=== PATIENT | female | born 1955 | race Caucasian/White ===

== ENCOUNTER 2025-01-13 09:00 | Outpatient (RCR) | payer MEDICARE, SELFPAY | END 2025-05-13 23:59 | disposition home or self-care (01) | PROVIDERS: PCP Student in an Organized Health Care Education/Training Program; Visit Provider Student in an Organized Health Care Education/Training Program | DX: M16.12 Unilateral primary osteoarthritis, left hip (principal); Z96.642 Presence of left artificial hip joint; Z51.89 Encounter for other specified aftercare | CPT/HCPCS: 97110; 97161; 97535 ==

== ENCOUNTER 2025-01-19 06:08 | Day surgery (SDC) | payer MEDICARE, SELFPAY ==
[2025-01-19] VITALS (65 sets, daily range): BP systolic 74–123; BP diastolic 53–79; PULSE 76–107; RESP 12–20; TEMP 36.1–37.5; O2SAT 93–99; BMI 19.9
[2025-01-19] MEDS: LACTATED RINGERS 1000 ML 1,000 ML 100 ML IV ×2 (06:25→15:03)
[2025-01-19] MEDS: SODIUM CHLORIDE 0.9 % (FLUSH) 10 ML SYRINGE IVF ×2 (06:40→14:30)
--- NOTE | 2025-01-19 07:13 | SUR.PREOP ---
TIME?OUT:?0714 PT/RN/MDA?VERIFICATION?OF?SURGICAL?SITE,?PROCEDURE,?AND?CONSENT OBTAINED?PRIOR?TO?INVASIVE?PROCEDURE.
[2025-01-19] MEDS: MIDAZOLAM HCL 1 MG/ML inj IVP (07:20)
[2025-01-19] MEDS: fentaNYL 100 MCG/2 ML inj IVP (07:20)
--- NOTE | 2025-01-19 07:20 | W.PM.H&PU ---
History & Physical Update History & Physical Update H&P Reviewed and patient assessed: No changes noted
--- NOTE | 2025-01-19 07:30 | CRLHL7_ITS ---
For Patients: As a result of the Cures Act, medical imaging exams and procedure reports are released immediately into your electronic medical record. You may view this report before your referring provider. If you have questions, please contact your health care provider. Indication: Hip replacement surgery Technique: AP hip fluoroscopic image. Fluoroscopy time 48.6 seconds. Findings/Impression: Hardware from a left total hip arthroplasty is in satisfactory position. Dictated by Dayorn Saeed MD @ 01/19/2025 9:52:01 AM (Electronically Signed)
[2025-01-19] MEDS: CEFAZOLIN 2 GM in 0.9 % SODIUM CHLORIDE Mini-bag 100 ML IVPB (07:45)
[2025-01-19] MEDS: TRANEXAMIC ACID 100 MG/ML INJ 1000 MG IV (07:52)
--- NOTE | 2025-01-19 09:27 | P.ORPRC_ITS ---
Procedure Note Date of procedure: 01/19/25 Procedure: PREOPERATIVE DIAGNOSIS: 1. Left hip osteoarthritis, severe, primary POSTOPERATIVE DIAGNOSIS: 1. Left hip osteoarthritis, severe, primary PROCEDURE: 1. Left total hip arthroplasty-anterior approach 2. 05871 - intraoperative fluoroscopy up to 1 hour. SURGEON: Nash Mccarty MD. DOUGH BRAKE MACHINE OPERATOR: Deshaun Gaines PA-C; SASHA Durham - Of note, a skilled orthotics assistant was critical for this case to aid in patient positioning, tissue retraction, limb manipulation/positioning, dislocation/relocation, patient safety, and closure. ANESTHESIA: Spinal anesthetic EBL: 800ml IMPLANTS: DePuy J&J uncemented total hip [place] cup size 50, single cancellous acetabular screw, hole eliminator, +4 neutral liner Actis stem, standard offset, size 7 +9 mm ceramic 32mm head. COMPLICATIONS: None evident INDICATIONS: The patient is a pleasant 69-year-old female who has experienced severe left hip pain and difficulty bearing weight. Workup included x-rays which revealed severe osteoarthrosis in the hip. Given the deformity, the dysfunction, and the pain, as well as the failure of nonoperative management, recommendation was made for surgery. FINDINGS: Full-thickness chondral loss diffusely throughout the femoral head and acetabulum. Flattening to the femoral head. Osteophytes around the perimeter the femoral head/neck junction and perimeter of the acetabulum. Moderate effusion upon entering the joint. DESCRIPTION OF PROCEDURE: Following a thorough discussion of risks, benefits, and alternatives consent was obtained and the left hip was marked. The patient was brought to the operating room and placed supine on the operating table. Induction of anesthesia was undertaken. 1 g IV Ancef and 1 g tranexamic acid was administered within 1 hr of incision preoperatively. Proper time-out was performed identifying proper patient, site, procedure. The operative extremity was prepped and draped in the appropriate sterile fashion using ChloraPrep after the patient was positioned on the [place] table with head in neutral alignment and all bony prominences well padded. C-arm fluoroscopic imaging was utilized to confirm proper pelvis rotation and position, and to get true AP films of both the contralateral left, and the affected left hip. This is for comparison. A longitudinal incision was made starting approximately 1 cm distal to the ASIS, and 3-4 cm lateral. The incision was extended distally aiming toward the lateral border the patella. Sharp incision through skin and bovie cautery through the subcutaneous tissue allowed identification of the TFL fascia. This was sharply divided, and the fascia bluntly released from the muscle fibers as we dissected medial. Upon coming to the medial border, we were able to retract the TFL laterally, and penetrated the deeper fascia and identify the crossing circumflex vessels. These were ligated/cauterized. The rectus was elevated from the capsule, and retractors placed laterally and medially along the femoral neck to help with visualization of the capsule. We then performed an inverted T capsulotomy. The capsule was tagged for later repair. Retractors were placed inside the capsule. The femoral neck was visuali zed after releasing medially down to the lesser trochanter, along the saddle laterally, and up onto the acetabulum. The femoral neck cut was made in line with our preoperative templating. The head was removed in a single piece, and sized. We turned our attention to acetabular preparation. Initially, the labrum was resected from around the perimeter, the pulvinar was excised, allowing us to visualize the false wall. We started the reaming with a 43 mm reamer. This was medialized down to the true wall. We then enlarged our reamers sequentially up to one size less than the selected cup size. We trialed at the same size and found it to have an excellent fit. The selected cup was then opened, inserted, and impacted in line with the goal of 40-45? of abduction, and 20-25? of anteversion. This was confirmed on C-arm fluoroscopic imaging to be in the appropriate/goal position. Once the cup was placed we placed a hole eliminator and a liner consistent with preop planning. Attention was turned to the femoral preparation. The limb was extended, externally rotated, and adducted. The posteromedial capsule was released, as retractors were placed allowing excellent access to the proximal femur. Initially a box lining machine operator was followed by canal finder followed by various broaches. We broached sequentially up to size noted above, found it to have excellent rotational control, and trialing various heads and necks, revealed that appropriate neck offset, and the above noted head size provided the greatest stability, and denominational of length, and offset. C-arm fluoroscopic imaging confirmed position of the stem, as well as leg lengths, which were compared with the pre procedure all fluoroscopic images. Trial implants were removed, the real femoral stem inserted, as was the ceramic head. After reducing, the leg was placed through range of motion and stability was confirmed anterior, posterior, and lateral. A 3 min Betadine soak was then performed, and thorough irrigation with normal saline followed. Closure of the capsule was performed with #1 PDS. Bleeding was confirmed to be controlled at this stage, and the TFL fascia was closed with #0 strata fix. Subcutaneous, and subcuticular closure was performed with 2-0 Vicryl and 4-0 Monocryl, respectively. Dressings were applied, and the patient was awoken from anesthesia and transferred the PACU in stable condition. A skilled orthotics assistant was critical for this case to aid in patient positioning, tissue retraction, proximal femur exposure, limb manipulation/positioning, dislocation/relocation, patient safety, and closure. PLAN: 1. Weight bear as tolerated operative extremity. 2. 23 hr perioperative antibiotics. 3. Ice. 4. PT/OT consults for ambulation assistance/mobility education. 5. Social work consult for discharge planning. 6. DVT prophylaxis with at SCDs and Xarelto x5 days followed by aspirin for a total of 1 month..
--- NOTE | 2025-01-19 10:07 | CRLHL7_ITS ---
For Patients: As a result of the Cures Act, medical imaging exams and procedure reports are released immediately into your electronic medical record. You may view this report before your referring provider. If you have questions, please contact your health care provider. Indication: POST OP LEFT RONALD Technique: AP hip centered pelvis and lateral view left hip Findings/Impression: Hardware from a left total hip arthroplasty is in satisfactory position. Bone alignment is normal. No sign of acute fracture. Postop changes are within normal limits. Dictated by Dayron Saeed MD @ 01/19/2025 10:52:24 AM (Electronically Signed)
--- NOTE | 2025-01-19 10:16 | P.NB_ITS ---
Nerve Block Nerve Block Time Seen by Provider: 07:15 Date Seen: 01/19/25 Type of block requested by surgeon for post-operative analgesia: CHAZ/LFCN Side: left Time out performed: Yes Verification of patient name: Yes Verification of date of : Yes Site marking: site marked Name of person performing procedure: Devon Continuous monitoring Was continuous monitoring of O2 sat, B/P, phototypesetting equipment monitor, recorded every 15 minutes?: Yes Procedure Checklist: sterile prep, needles and gloves Ultrasound guided. Images saved: Yes Medications given in 5ml increments after negative aspiration: Ropivicaine %: 0.5 mL: 20 Needle gauge: 20 Precedex (mcg): 25 Patient tolerated procedure well: Yes Additional comments: Needle noted below psoas tendon needle noted adjacent to LFCN Block Charges Block Charge (with Pro Fee): Other Periph Nerve Block Use of Ultrasound Machine for Block: Yes- US Guidance/pain block
--- NOTE | 2025-01-19 10:17 | P.ANES_ITS ---
Anesthesia Charges Start Date/Time Anesthesia Start Date: 01/19/25 Anesthesia Start Time: 07:28 Stop Date/Time Anesthesia Stop Date: 01/19/25 Anesthesia Stop Time: 10:15 Coding CPT Codes CPT Codes: ANESTH HIP ARTHROPLASTY - 66827 ([id number]) P1 - NORMAL HEALTHY PATIENT, QK - SOCIAL MEDIA JOB TITLES 2-4 CNCRNT ANECarlos A PROC, QX - SUCKER MACHINE OPERATOR SVGraham W/ MED DIRECTION
--- NOTE | 2025-01-19 10:17 | W.ANESCHARGE ---
Anesthesia Charges Start Date/Time Anesthesia Start Date: 01/19/25 Anesthesia Start Time: 07:28 Stop Date/Time Anesthesia Stop Date: 01/19/25 Anesthesia Stop Time: 10:15 Coding CPT Codes CPT Codes: ANESTH HIP ARTHROPLASTY - 79181 ([id number]) P1 - NORMAL HEALTHY PATIENT, QK - MANAGER HEART FAILURE 2-4 CNCRNT ANECarlos A PROC, QX - ENTRY LEVEL MANAGEMENT SVGraham W/ MED DIRECTION
[2025-01-19 10:26] LABS: Hemoglobin* 10.5 gm/dL (12.0-16.0)
[2025-01-19] MEDS: PHENYLEPHRINE 100 MCG/ML SYRINGE IVP ×4 (10:31→11:37)
--- NOTE | 2025-01-19 10:32 | P.ANES_ITS ---
Anesthesia Charges Start Date/Time Anesthesia Start Date: 01/19/25 Anesthesia Start Time: 07:28 Stop Date/Time Anesthesia Stop Date: 01/19/25 Anesthesia Stop Time: 10:15 Coding CPT Codes CPT Codes: ANESTH HIP ARTHROPLASTY - 73377 ([id number]) P1 - NORMAL HEALTHY PATIENT, QK - DERRICK MAN 2-4 CNCRNT ANECarlos A PROC, QX - MEDICAL RECORD LIBRARIAN SVGraham W/ MED DIRECTION
--- NOTE | 2025-01-19 10:32 | W.ANESCHARGE ---
Anesthesia Charges Start Date/Time Anesthesia Start Date: 01/19/25 Anesthesia Start Time: 07:28 Stop Date/Time Anesthesia Stop Date: 01/19/25 Anesthesia Stop Time: 10:15 Coding CPT Codes CPT Codes: ANESTH HIP ARTHROPLASTY - 04203 ([id number]) P1 - NORMAL HEALTHY PATIENT, QK - MANAGEMENT RECRUITER 2-4 CNCRNT ANECarlos A PROC, QX - CERTIFIED MEDICAL CODING SPECIALIST SVGraham W/ MED DIRECTION
[2025-01-19] MEDS: ePHEDrine sulfate 5 MG/ML inj IVP ×2 (10:54→11:10)
[2025-01-19] MEDS: ALBUMIN HUMAN 5% IV (11:17)
[2025-01-19] MEDS: LACTATED RINGERS 1000 ML 1,000 ML 200 ML IV (12:29)
[2025-01-19] MEDS: OXYCODONE 5 MG TABLET PO ×4 (14:21→22:24)
--- NOTE | 2025-01-19 15:11 | SUR.PHASEII ---
1400: Patient up to bathroom at 1400 with 3 feet ambulation with walker then to wheel chair, patient voided. Patient up in chair after voiding. Pain rated a 6 on pain scale. Patient given pain med and apple sauce. Tolerating coffee and water. 1430: Patient transferred to wheel chair with 2 nurse standby assist. Patient became lightheaded, near syncope episode but still remained conscious. Deshaun SEGURA in room to help transfer patient back to cart. Transfer orders placed by Deshanu for patient to recover in [facility]. Order from anesthesia given to place 18 gauge IV.
--- NOTE | 2025-01-19 16:03 | SUR.PHASEII ---
Patient transfered to [facility] at 1440.
--- NOTE | 2025-01-19 16:08 | P.IMCN_ITS ---
Date of Consult Patient: Rebeca Patient Consult date: 01/19/25 Requesting Physician: Orthopedics Primary Care Provider: Griselda Trejo MD Consult Narrative Narrative: Lydia Leon is a 69 year old female with no major medical issues underwent an elective LTHA today by Dr. Mccarty for severe osteoarthritis. I am told her EBL was 800-1000cc. Preop Hgb on 01/13/25 was 14.4 and is 10.5 post op this morning. She is not on any blood thinners, but had been on celecoxib for pain in her hip. She had some weakness and dizziness with standing in the PACU, but that resolved, and she does not feel those symptoms now while lying in bed. She endorses nausea, which is not unusual for her. She has a long standing issue of throwing up pills 2 hours after taking them. She has not had an EGD or other evaluation of this symptoms. I encouraged her to talk with her PCP about that issue. Review of Systems Status of ROS: Reports: 10 or more systems reviewed and unremarkable except as noted in History and below PFSH [facility] Medical History Lower back injury ?S39.92XA - Unspecified injury of lower back, initial encounter (ICD-10) Cough ?R05.9 - Cough, unspecified (ICD-10) Depression ?F32.A - Depression, unspecified (ICD-10) Left hip pain ?M25.552 - Pain in left hip (ICD-10) Skin tag ?L91.8 - Other hypertrophic disorders of the skin (ICD-10) Surgical History (Updated 01/19/25 @ 16:34 by Alaina García MD) History of total left hip replacement (01/19/25) ?Z96.642 - Presence of left artificial hip joint (ICD-10) H/O wisdom tooth extraction ?K08.409 - Partial loss of teeth, unspecified cause, unspecified class (ICD- 10) H/O hemorrhoidectomy ?Z98.890 - Other specified postprocedural states (ICD-10) History of breast augmentation ?Z98.82 - Breast implant status (ICD-10) Family History Mother Breast cancer Social History Narrative: life partner-Catracho Retired from [employer] Denies tob, EtOH, recreational drug use Smoking Status: Never smoker Do you use any of these nicotine containing products: None Second hand tobacco smoke exposure: No How often do you have a drink containing alcohol: never AUDIT-C Alcohol total score: 0 Non-prescribed substance use: denies use Caffeine: Yes Are you using contraception or practicing any form of control: No Meds Home Medications and Allergies Home Medications ?Medication ?Instructions ?Recorded ?Confirmed ?Type celecoxib 100 mg capsule 100 mg PO BID 01/03/25 01/19/25 History clobetasol 0.05 % topical cream 1 applic topical BID 01/19/25 01/19/25 History triamcinolone acetonide 0.1 % 1 applic topical BID 01/19/25 01/19/25 History topical cream Allergies Allergy/AdvReac Type Severity Reaction Status Date / Time monosodium glutamate Allergy Mild Headache Verified 01/18/25 07:00 sorbitol Allergy Mild Headache Verified 01/18/25 07:00 Exam Narrative: Exam Narrative: General: No acute distress. Awake alert oriented x3. HEENT: Normocephalic atraumatic, pupils equally round and reactive to light and accommodation. Oropharynx clear. Mucous membranes are moist. No cervical lymphadenopathy, thyromegaly or carotid bruits. No JVD. Cardiovascular: Regular rate and rhythm. No murmurs, gallops, or rubs. Chest: No increased work of breathing. Clear to auscultation bilaterally. No crackles or wheezes. Abdomen: Bowel sounds present. Soft, nondistended, nontender. No hepatosplenomegaly or masses. Extremities: Left hip bandage is clean, dry, and intact. There is no edema, fluctuance, hematoma, or bruising noted in the left hip. No edema, no cyanosis or clubbing. Skin: No jaundice, pallor noted, no rashes on visible skin. Const: Vital Signs, click to edit/add: Vital Signs - 24 hr 01/19/25 06:48 01/19/25 07:12 01/19/25 07:15 Temperature 98.1 F Pulse Rate 92 93 86 Respiratory Rate 16 16 16 Blood Pressure 100/69 116/79 113/78 Pulse Oximetry 94 93 99 Oxygen Delivery Me thod Room Air Nasal Cannula Nasal Cannula Oxygen Flow Rate 3 3 01/19/25 07:20 01/19/25 10:10 01/19/25 10:15 Temperature 97.3 F L Pulse Rate 83 106 H 107 H Respiratory Rate 16 18 16 Blood Pressure 103/73 89/63 L 88/58 L Pulse Oximetry 99 95 96 Oxygen Delivery Me thod Nasal Cannula Room Air Room Air Oxygen Flow Rate 3 01/19/25 10:20 01/19/25 10:25 01/19/25 10:30 Temperature 97.3 F L Pulse Rate 90 82 94 Respiratory Rate 14 14 18 Blood Pressure 91/63 99/64 74/58 L Pulse Oximetry 95 94 96 Oxygen Delivery Me thod Room Air Room Air Room Air Oxygen Flow Rate 01/19/25 10:35 01/19/25 10:40 01/19/25 10:45 Temperature 97.5 F L Pulse Rate 86 90 90 Respiratory Rate 14 14 14 Blood Pressure 88/64 L 94/53 L 81/56 L Pulse Oximetry 97 96 96 Oxygen Delivery Me thod Room Air Room Air Room Air Oxygen Flow Rate 01/19/25 10:50 01/19/25 10:55 01/19/25 11:00 Temperature 97.5 F L Pulse Rate 92 93 89 Respiratory Rate 12 14 12 Blood Pressure 79/53 L 74/57 L 97/65 Pulse Oximetry 94 95 95 Oxygen Delivery Me thod Room Air Room Air Room Air Oxygen Flow Rate 01/19/25 11:05 01/19/25 11:10 01/19/25 11:15 Temperature 97.5 F L Pulse Rate 95 95 92 Respiratory Rate 14 14 14 Blood Pressure 123/61 78/58 L 98/60 Pulse Oximetry 96 95 96 Oxygen Delivery Me thod Room Air Room Air Room Air Oxygen Flow Rate 01/19/25 11:20 01/19/25 11:25 01/19/25 11:30 Temperature 97.3 F L Pulse Rate 91 84 81 Respiratory Rate 16 16 16 Blood Pressure 90/56 L 92/62 90/72 Pulse Oximetry 95 95 97 Oxygen Delivery Me thod Room Air Room Air Room Air Oxygen Flow Rate 01/19/25 11:35 01/19/25 11:40 01/19/25 11:45 Temperature 97.2 F L Pulse Rate 87 80 81 Respiratory Rate 16 14 18 Blood Pressure 83/63 L 96/62 106/64 Pulse Oximetry 97 96 96 Oxygen Delivery Me thod Room Air Room Air Room Air Oxygen Flow Rate 01/19/25 11:50 01/19/25 11:55 01/19/25 12:00 Temperature 97.1 F L Pulse Rate 81 80 77 Respiratory Rate 12 16 18 Blood Pressure 90/61 91/61 90/59 L Pulse Oximetry 96 95 Oxygen Delivery Me thod Room Air Room Air Room Air Oxygen Flow Rate 01/19/25 12:05 01/19/25 12:10 01/19/25 12:15 Temperature 97.1 F L Pulse Rate 79 78 76 Respiratory Rate 14 14 14 Blood Pressure 97/64 92/62 101/53 L Pulse Oximetry 95 96 94 Oxygen Delivery Me thod Room Air Room Air Room Air Oxygen Flow Rate 01/19/25 12:20 01/19/25 12:30 01/19/25 12:35 Temperature 97.0 F L 97.1 F L Pulse Rate 85 82 91 Respiratory Rate 18 18 16 Blood Pressure 89/65 L 88/59 L 96/65 Pulse Oximetry 97 96 95 Oxygen Delivery Me thod Room Air Room Air Room Air Oxygen Flow Rate 01/19/25 12:45 01/19/25 12:50 01/19/25 12:52 Temperature Pulse Rate 87 81 87 Respiratory Rate 16 16 16 Blood Pressure 94/66 82/56 L 99/76 Pulse Oximetry 96 96 96 Oxygen Delivery Me od Room Air Room Air Oxygen Flow Rate 01/19/25 13:00 01/19/25 13:10 01/19/25 13:20 Temperature 97.6 F Pulse Rate 85 91 91 Respiratory Rate 16 16 16 Blood Pressure 90/62 98/58 L 96/62 Pulse Oximetry 95 97 98 Oxygen Delivery Me thod Room Air Room Air Room Air Oxygen Flow Rate 01/19/25 13:30 01/19/25 13:51 01/19/25 14:00 Temperature Pulse Rate 85 96 90 Respiratory Rate 16 16 16 Blood Pressure 96/59 L 104/63 96/54 L Pulse Oximetry 97 98 98 Oxygen Delivery Me thod Room Air Room Air Room Air Oxygen Flow Rate 01/19/25 14:10 01/19/25 14:20 01/19/25 14:30 Temperature Pulse Rate 92 90 91 Respiratory Rate 16 16 16 Blood Pressure 87/58 L 98/73 80/58 L Pulse Oximetry 98 97 98 Oxygen Delivery Me thod Room Air Room Air Room Air Oxygen Flow Rate 01/19/25 14:40 01/19/25 14:45 01/19/25 14:50 Temperature 97.3 F L Pulse Rate 85 85 80 Respiratory Rate 16 16 16 Blood Pressure 87/53 L 96/68 109/72 Pulse Oximetry 98 98 95 Oxygen Delivery Me thod Room Air Room Air Room Air Oxygen Flow Rate 01/19/25 15:00 Temperature Pulse Rate Respiratory Rate 16 Blood Pressure Pulse Oximetry 96 Oxygen Delivery Me thod Room Air Oxygen Flow Rate Labs Labs: Short CBC 01/19/25 Range/Units 10:21 Hgb 10.5 L (12.0-16.0) gm/dL Assessment and Plan Assessment and plan (1) History of total left hip replacement: Problem comment: Left total hip arthroplasty-anterior approach. Dr. Mccarty, 01/19/25 - routine postop cares - VTE prophylaxis with low-dose daily rivaroxaban, may need to consider postponing this if hemoglobin continues to drop, see below - PT and OT assessments Status: Acute (2) Osteoarthritis of left hip: Problem comment: Severe Status: Chronic (3) Acute blood loss as cause of postoperative anemia: Problem comment: - I am told her EBL was 800-1000cc. Preop Hgb on 01/13/25 was 14.4 and is 10.5 post op this morning. She is not on any blood thinners, but had been on celecoxib for pain in her hip. - currently asymptomatic, but was symptomatic in the PACU with standing. - obtain orthostatic blood pressures - obtain repeat hemoglobin this afternoon, notably she had 3 L IV fluid perioperatively - I discussed the risks and benefits of blood products with the patient and her significant other. The risks include transmission of blood borne illnesses including HIV and hepatitis. Additionally the risks include blood reaction or allergic reaction. She was agreeable to getting blood if it is recommended. - type and cross, will consider giving blood if patient is orthostatic, hemoglobin is less than 8, hemoglobin continues to drop by tomorrow morning, or patient is symptomatic or if there is evidence of ongoing bleeding Status: Acute
[2025-01-19] MEDS: CEFAZOLIN 1 GM in 0.9 % SODIUM CHLORIDE Mini-bag 100 ML IVPB ×2 (16:35→23:54)
[2025-01-19 16:47] LABS: Hemoglobin* 7.9 gm/dL (12.0-16.0)
--- NOTE | 2025-01-19 16:48 | REH.OT ---
OT: Order received and initially attempted to see patient in same day surgery, however nursing reports patient hypotensive, not tolerating activity and planning to transfer to med surg floor. Recheck status later and patient transferring to med surg and undergoing assessment with RN, then MD. Will reschedule OT for am due to patient status.
--- NOTE | 2025-01-19 21:51 | PC.NURSE ---
End of blood transfusion temp charted at 99.8 in error. Temperature was 99.5. Unable to edit documentation to fix error. Dr. García aware of temperature increase of 1.7 degrees above starting temperature. No new orders. Will recheck vitals at 2230 per protocol.
[2025-01-19] MEDS: SENNOSIDES 1 TAB TABLET 2 TAB PO (22:23)
--- NOTE | 2025-01-19 22:42 | PC.NURSE ---
Patient arrived to the floor after hip surgery. Hypotensive, dizzy and unable to sit up. Fluids running. Patient reporting pain in hip- alleviated some with PRN pain medications. Blood pressures remained low (90's/50's), and patient hemoglobin recheck low as well. Patient needing 1 unit of blood. At the end of the transfusion, patient had an increase in temperature. At the 1 hour post transfusion check- temperature was 99.0. Still elevated, but not 2 degress from starting transfusion. All other vitals remained stable and patient denied other symptoms. Patient voiding on the bedpan and taking medications crushed in applesauce. Nursing to continue to monitor.
[2025-01-20] MEDS: LACTATED RINGERS 1000 ML 1,000 ML 100 ML IV (01:26)
[2025-01-20] MEDS: OXYCODONE 5 MG TABLET PO ×4 (02:23→12:07)
[2025-01-20 02:40] LABS: Basophils Absolute Auto 0.01 K/uL (0.00-0.30); Basophils Percent Auto 0.2 % (0.0-3.0); Eosinophils Absolute Auto 0.01 K/uL (0.00-0.50); Eosinophils Percent Auto 0.2 % (0.0-7.0); Hematocrit 25.8 % (33.0-51.0); Hemoglobin* 8.8 gm/dL (12.0-16.0); Immature Granulocytes Abs Auto 0.01 K/uL (0.00-0.30); Immature Granulocytes Pct Auto 0.2 %; Mean Corpuscular HGB Conc 34 gm/dL (32-36); Mean Corpuscular Hemoglobin 32 pg (26-34); Mean Corpuscular Volume 93 fL (80-100); Monocytes Percent Auto 15.7 % (0.0-11.0); Neutrophils Percent Auto 73.7 % (42.0-72.0); Platelet Count* 118 K/uL (140-440); RDW Coefficient of Variation % 15.8 % (11.5-15.5); Red Blood Count 2.79 m/uL (4.00-5.20); White Blood Count* 6.07 K/uL (4.50-11.00)
[2025-01-20 02:45] LABS: Slide Review Reflex No
[2025-01-20 02:53] LABS: Chloride* 96 mmol/L (96-114); Sodium* 129 mmol/L (135-149)
[2025-01-20 02:54] LABS: Potassium* 3.5 mmol/L (3.6-5.1)
[2025-01-20 02:56] LABS: Blood Urea Nitrogen* 12 mg/dL (7-30); Creatinine* 0.4 mg/dL (0.5-1.5); Est. Creatinine Clearance* 46.24; Estimated Glomerular Filt Rate 108 ml/min
[2025-01-20 02:57] LABS: Anion Gap 7 mEq/L (7-15); Calcium* 7.8 mg/dL (8.4-10.6); Carbon Dioxide* 26 mmol/L (20-32); Glucose* 146 mg/dL (60-115)
[2025-01-20 03:00] VITALS: BP 129/73; PULSE 96; RESP 20; TEMP 36.6; O2SAT 93
--- NOTE | 2025-01-20 06:54 | PC.NURSE ---
End of shift summary: Pt has been A&O, afebrile and VSS overnight. She has improved to Ax1 with 2ww ambulating to the BR. Pt denies having any dizziness or nausea with ambulation. She continuously rates her pain at 7/10 before or after pain meds or activity. Ice on/off throughout the night. Left anterior hip dressing is C/D/I with no redness or swelling. CMS intact. PIV in left FA infusing LR @ 100 mL/hr d/t pt having a couple unmeasured voids. Bed alarm is in place d/t pt self transferring overnight while ripping out her IV and not using her walker. After RN re-educated her transportation department supervisor light use, fall risk and surgery precautions; pt verbalized understanding and was call light appropriate. She takes her meds with applesauce d/t reporting difficulty swallowing pills and will ?vomit them up in a couple hours?. Hgb recheck after transfusion of 1 unit RBC?s was 8.8. Pt remains pale in color.?
[2025-01-20 07:15] VITALS: BP 99/59; PULSE 106; RESP 20; TEMP 36.2; O2SAT 93; O2SAT 97
[2025-01-20 08:20] LABS: Hematocrit 26.7 % (33.0-51.0); Hemoglobin* 9.1 gm/dL (12.0-16.0); Mean Corpuscular HGB Conc 34 gm/dL (32-36); Mean Corpuscular Hemoglobin 32 pg (26-34); Mean Corpuscular Volume 93 fL (80-100); Platelet Count* 114 K/uL (140-440); Red Blood Count 2.88 m/uL (4.00-5.20); White Blood Count* 6.75 K/uL (4.50-11.00)
[2025-01-20 08:27] LABS: Slide Review Reflex No
[2025-01-20 08:33] LABS: Chloride* 96 mmol/L (96-114); Potassium* 3.7 mmol/L (3.6-5.1); Sodium* 131 mmol/L (135-149)
[2025-01-20 08:36] LABS: Anion Gap 4 mEq/L (7-15); Blood Urea Nitrogen* 8 mg/dL (7-30); Calcium* 8.2 mg/dL (8.4-10.6); Carbon Dioxide* 31 mmol/L (20-32); Creatinine* 0.4 mg/dL (0.5-1.5); Est. Creatinine Clearance* 46.24; Estimated Glomerular Filt Rate 108 ml/min; Glucose* 135 mg/dL (60-115)
[2025-01-20] MEDS: SENNOSIDES 1 TAB TABLET 2 TAB PO (08:55)
[2025-01-20] MEDS: RIVAROXABAN 10 MG TABLET PO (08:55)
--- NOTE | 2025-01-20 09:31 | PM.ORPN ---
Subjective Subjective Date Seen: 01/20/25 Principal diagnosis: Status postop day 1, left total hip arthroplasty - anterior approach Interval history: Patient reports doing better this morning. Still having pain, 05/12 consistently, feeling that the oxycodone is not providing any relief. She received 1 unit of PRBC postsurgical due to increased blood loss intraoperatively, and symptoms of orthostatic blood pressures, lightheadedness, dizziness, and pale complexion. Reportedly, she got up to go to the bathroom with blood running and dislodged the IV. She is supposed to be up with help. Pain managed with scheduled and PRN medications, ice (medications are crushed in applesauce). DVT prophylaxis: Rivaroxaban, SCDs, walking. Denies fevers, chills, aches, N/V, CP, SOB/URRUTIA. Reports to me that her lightheadedness is nearly completely resolved since yesterday. She wants to stay another night. Ortho Exam Narrative Exam Narrative: -Patient appears comfortable in recliner; no apparent acute distress -Alert and oriented times 3 -overall complexion is pale. No diaphoresis. -Operative hip moderately swollen; soft tissues supple; no obvious erythema. Ecchymosis minimal. Warmth appropriate. No obvious hematoma. Tender to palpation over the anterior thigh. -Surgical dressing clean, dry, intact; no obvious drainage, no erythematous streaking peripheral to the bandage -Bilateral calves soft and supple; no significant swelling, edema, tenderness, erythema, discoloration, warmth, or palpable cords -2+ DP/PT pulses, intact dermatomes and myotomes distally (5/5 strength). Numbness about the lateral femoral cutaneous nerve distribution. Const Vital Signs, click to edit/add: Vital Signs - 24 hr 01/19/25 10:10 01/19/25 10:15 01/19/25 10:20 Temperature 97.3 F L Pulse Rate 106 H 107 H 90 Pulse Rate [Left Pulse Oximeter] Respiratory Rate 18 16 14 Blood Pressure 89/63 L 88/58 L 91/63 Blood Pressure [Right Arm] Pulse Oximetry 95 96 95 Oxygen Delivery Method Room Air Room Air Room Air Oxygen Flow Rate 01/19/25 10:25 01/19/25 10:30 01/19/25 10:35 Temperature 97.3 F L Pulse Rate 82 94 86 Pulse Rate [Left Pulse Oximeter] Respiratory Rate 14 18 14 Blood Pressure 99/64 74/58 L 88/64 L Blood Pressure [Right Arm] Pulse Oximetry 94 96 97 Oxygen Delivery Method Room Air Room Air Room Air Oxygen Flow Rate 01/19/25 10:40 01/19/25 10:45 01/19/25 10:50 Temperature 97.5 F L Pulse Rate 90 90 92 Pulse Rate [Left Pulse Oximeter] Respiratory Rate 14 14 12 Blood Pressure 94/53 L 81/56 L 79/53 L Blood Pressure [Right Arm] Pulse Oximetry 96 96 94 Oxygen Delivery Method Room Air Room Air Room Air Oxygen Flow Rate 01/19/25 10:55 01/19/25 11:00 01/19/25 11:05 Temperature 97.5 F L Pulse Rate 93 89 95 Pulse Rate [Left Pulse Oximeter] Respiratory Rate 14 12 14 Blood Pressure 74/57 L 97/65 123/61 Blood Pressure [Right Arm] Pulse Oximetry 95 95 96 Oxygen Delivery Method Room Air Room Air Room Air Oxygen Flow Rate 01/19/25 11:10 01/19/25 11:15 01/19/25 11:20 Temperature 97.5 F L Pulse Rate 95 92 91 Pulse Rate [Left Pulse Oximeter] Respiratory Rate 14 14 16 Blood Pressure 78/58 L 98/60 90/56 L Blood Pressure [Right Arm] Pulse Oximetry 95 96 95 Oxygen Delivery Method Room Air Room Air Room Air Oxygen Flow Rate 01/19/25 11:25 01/19/25 11:30 01/19/25 11:35 Temperature 97.3 F L Pulse Rate 84 81 87 Pulse Rate [Left Pulse Oximeter] Respiratory Rate 16 16 16 Blood Pressure 92/62 90/72 83/63 L Blood Pressure [Right Arm] Pulse Oximetry 95 97 97 Oxygen Delivery Method Room Air Room Air Room Air Oxygen Flow Rate 01/19/25 11:40 01/19/25 11:45 01/19/25 11:50 Temperature 97.2 F L Pulse Rate 80 81 81 Pulse Rate [Left Pulse Oximeter] Respiratory Rate 14 18 12 Blood Pressure 96/62 106/64 90/61 Blood Pressure [Right Arm] Pulse Oximetry 96 96 Oxygen Delivery Method Room Air Room Air Room Air Oxygen Flow Rate 01/19/25 11:55 01/19/25 12:00 01/19/25 12:05 Temperature 97.1 F L Pulse Rate 80 77 79 Pulse Rate [Left Pulse Oximeter] Respiratory Rate 16 18 14 Blood Pressure 91/61 90/59 L 97/64 Blood Pressure [Right Arm] Pulse Oximetry 96 95 95 Oxygen Delivery Method Room Air Room Air Room Air Oxygen Flow Rate 01/19/25 12:10 01/19/25 12:15 01/19/25 12:20 Temperature 97.1 F L Pulse Rate 78 76 85 Pulse Rate [Left Pulse Oximeter] Respiratory Rate 14 14 18 Blood Pressure 92/62 101/53 L 89/65 L Blood Pressure [Right Arm] Pulse Oximetry 96 94 97 Oxygen Delivery Method Room Air Room Air Room Air Oxygen Flow Rate 01/19/25 12:30 01/19/25 12:35 01/19/25 12:45 Temperature 97.0 F L 97.1 F L Pulse Rate 82 91 87 Pulse Rate [Left Pulse Oximeter] Respiratory Rate 18 16 16 Blood Pressure 88/59 L 96/65 94/66 Blood Pressure [Right Arm] Pulse Oximetry 96 95 96 Oxygen Delivery Method Room Air Room Air Room Air Oxygen Flow Rate 01/19/25 12:50 01/19/25 12:52 01/19/25 13:00 Temperature Pulse Rate 81 87 85 Pulse Rate [Left Pulse Oximeter] Respiratory Rate 16 16 16 Blood Pressure 82/56 L 99/76 90/62 Blood Pressure [Right Arm] Pulse Oximetry 96 96 95 Oxygen Delivery Method Room Air Room Air Oxygen Flow Rate 01/19/25 13:10 01/19/25 13:20 01/19/25 13:30 Temperature 97.6 F Pulse Rate 91 91 85 Pulse Rate [Left Pulse Oximeter] Respiratory Rate 16 16 16 Blood Pressure 98/58 L 96/62 96/59 L Blood Pressure [Right Arm] Pulse Oximetry 97 98 97 Oxygen Delivery Method Room Air Room Air Room Air Oxygen Flow Rate 01/19/25 13:51 01/19/25 14:00 01/19/25 14:10 Temperature Pulse Rate 96 90 92 Pulse Rate [Left Pulse Oximeter] Respiratory Rate 16 16 16 Blood Pressure 104/63 96/54 L 87/58 L Blood Pressure [Right Arm] Pulse Oximetry 98 98 98 Oxygen Delivery Method Room Air Room Air Room Air Oxygen Flow Rate 01/19/25 14:20 01/19/25 14:30 01/19/25 14:40 Temperature Pulse Rate 90 91 85 Pulse Rate [Left Pulse Oximeter] Respiratory Rate 16 16 16 Blood Pressure 98/73 80/58 L 87/53 L Blood Pressure [Right Arm] Pulse Oximetry 97 98 98 Oxygen Delivery Method Room Air Room Air Room Air Oxygen Flow Rate 01/19/25 14:45 01/19/25 14:50 01/19/25 15:00 Temperature 97.3 F L Pulse Rate 85 80 Pulse Rate [Left Pulse Oximeter] Respiratory Rate 16 16 16 Blood Pressure 96/68 109/72 Blood Pressure [Right Arm] Pulse Oximetry 98 95 96 Oxygen Delivery Method Room Air Room Air Room Air Oxygen Flow Rate 01/19/25 15:00 01/19/25 15:15 01/19/25 15:30 Temperature 97.7 F 98.3 F 98.1 F Pulse Rate 85 92 85 Pulse Rate [Left Pulse Oximeter] Respiratory Rate 16 16 16 Blood Pressure 94/59 L 92/53 L 93/61 Blood Pressure [Right Arm] Pulse Oximetry 96 97 96 Oxygen Delivery Method Room Air Room Air Room Air Oxygen Flow Rate 01/19/25 15:45 01/19/25 16:00 01/19/25 16:30 Temperature 97.2 F L 97.3 F L 97.4 F L Pulse Rate 91 86 83 Pulse Rate [Left Pulse Oximeter] Respiratory Rate 18 16 16 Blood Pressure 91/57 L 96/59 L 89/57 L Blood Pressure [Right Arm] Pulse Oximetry 97 96 96 Oxygen Delivery Method Room Air Room Air Room Air Oxygen Flow Rate 01/19/25 17:30 01/19/25 18:30 01/19/25 19:30 Temperature 97.8 F 97.7 F Pulse Rate 82 80 94 Pulse Rate [Left Pulse Oximeter] Respiratory Rate 16 18 18 Blood Pressure 97/58 L 110/54 L 105/65 Blood Pressure [Right Arm] Pulse Oximetry 95 97 96 Oxygen Delivery Method Room Air Room Air Room Air Oxygen Flow Rate 01/19/25 19:46 01/19/25 20:02 01/19/25 20:30 Temperature 97.7 F 97.6 F 98.7 F Pulse Rate 94 90 87 Pulse Rate [Left Pulse Oximeter] Respiratory Rate 18 18 16 Blood Pressure 105/65 105/63 112/59 L Blood Pressure [Right Arm] Pulse Oximetry 96 95 96 Oxygen Delivery Method Room Air Oxygen Flow Rate 01/19/25 20:32 01/19/25 21:02 01/19/25 21:32 Temperature 98.7 F 98.4 F 99.5 F Pulse Rate 87 93 95 Pulse Rate [Left Pulse Oximeter] Respiratory Rate 16 16 16 Blood Pressure 112/59 L 99/70 106/64 Blood Pressure [Right Arm] Pulse Oximetry 96 95 97 Oxygen Delivery Method Room Air Oxygen Flow Rate 01/19/25 22:34 01/19/25 23:20 01/19/25 23:20 Temperature 99.0 F Pulse Rate 103 H Pulse Rate [Left Pulse Oximeter] 101 H Respiratory Rate 18 20 20 Blood Pressure 116/70 Blood Pressure [Right Arm] Pulse Oximetry 96 96 Oxygen Delivery Method Room Air Room Air Oxygen Flow Rate 01/19/25 23:20 01/20/25 03:00 01/20/25 07:15 Temperature 98.4 F 97.9 F Pulse Rate Pulse Rate [Left Pulse Oximeter] 101 H 96 Respiratory Rate 20 20 20 Blood Pressure Blood Pressure [Right Arm] 114/61 129/73 Pulse Oximetry 96 93 93 Oxygen Delivery Method Room Air Room Air Room Air Oxygen Flow Rate 3 01/20/25 07:15 Temperature 97.1 F L Pulse Rate Pulse Rate [Left Pulse Oximeter] 106 H Respiratory Rate 20 Blood Pressure Blood Pressure [Right Arm] 99/59 L Pulse Oximetry 97 Oxygen Delivery Method Room Air Oxygen Flow Rate Assessment and Plan Assessment and plan (1) History of total left hip replacement: Problem details: Left total hip arthroplasty-anterior approach. Dr. 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 Preop Hgb on 01/13/25 was 14.4 and is 10.5 post op this morning. She is not on any blood thinners, but had been on celecoxib for pain in her hip. - currently asymptomatic, but was symptomatic in the PACU with standing. - obtain orthostatic blood pressures - obtain repeat hemoglobin this afternoon, notably she had 3 L IV fluid perioperatively - I discussed the risks and benefits of blood products with the patient and her significant other. The risks include transmission of blood borne illnesses including HIV and hepatitis. Additionally the risks include blood reaction or allergic reaction. She was agreeable to getting blood if it is recommended. - carrie and víctor, will consider giving blood if patient is orthostatic, hemoglobin is less than 8, hemoglobin continues to drop by tomorrow morning, or patient is symptomatic or if there is evidence of ongoing bleeding Status: Acute Plan - Complete 23 hour perioperative antibiotics. - PT/OT consult for education and assistance. - Social work consult for discharge planning - Prescribed analgesics as needed - continue crushing medications in applesauce. We continue with oxycodone for narcotic pain control at this time - DVT prophylaxis rivaroxaban, SCDs, ambulation. She should have ambulation with assistance. - Anticipation is for discharge to home with family/friends once the patient remains medically stable, pain is controlled, and they are safe with mobilization. We want to make sure the patient can be successful at home. If she does well with therapies, is able to ambulate well to the bathroom, and is asymptomatic regarding her postoperative anemia, then patient may be able to discharge to home with family. Her a.m. hemoglobin as of 01/20/2025 is 9.1, which is improved since PRBC. Thus, rivaroxaban can continue for DVT prophylaxis for the 1st 5 days.
[2025-01-20 09:58] VITALS: PULSE 106; RESP 20
[2025-01-20 12:04] VITALS: BP 118/81; PULSE 95; RESP 20; TEMP 36.3; O2SAT 98
--- NOTE | 2025-01-20 13:17 | PC.NURSE ---
discharge. pt has been pleasant,. but she is impulsive and does not follow all of nursing instruction at times. she is alert x4. but forgetful at times. hip pain, she is getting po pain meds. she is up with 1 assist with 2ww ambulating to the BR and chair. Pt denies having any dizziness or lightheadedness with ambulation. active Ice on/off . Left anterior hip dressing is C/D/I with no redness or swelling. CMS intact. SL is patent and it was d/c intact. Bed alarm and chair alarms are on. pt does not always use the call light appropriate. She takes her meds with applesauce d/t reporting difficulty swallowing pills went over discharge package with pt and , went over medications, appointments, educations and instructions. went over and signed personal belonging sheet. she got a w/c ride out and was helped int o truck. she took all belonging and paperwork with her.
== END 2025-01-20 13:15 | disposition home or self-care (01) ==
LOC: OR 06:10 → MEDSURG 15:36
PROVIDERS: Anesthesiology; Family Medicine; PCP Family Medicine; Visit Provider Orthopaedic Surgery Sports Medicine
PROC: (CPT 27130; principal; 2025-01-19 07:30)
DX: M16.12 Unilateral primary osteoarthritis, left hip (principal); G89.18 Other acute postprocedural pain; D62 Acute posthemorrhagic anemia; F32.4 Major depressive disorder, single episode, in partial remission; R53.1 Weakness; R42 Dizziness and giddiness
CPT/HCPCS: 27130; 01214; 36415; 36430; 64450; 73501; 76000; 76942; 80048; 85018; 85025; 85027; 86850; 86900; 86901; 86922; 97110; 97116; 97161; 97165; 97535; A9270; C1713; C1776; J0690; J1100; J2250; J2371; J2405; J2704; J2795; J3010; J7120; P9016

== ENCOUNTER 2025-03-09 09:30 | Outpatient (RCR) | payer MEDICARE, SELFPAY ==
--- NOTE | 2025-01-28 12:51 | PT.OPE ---
[facility] PT [facility] Eval Start: 01/28/25 07:43 Freq: Status: Active Protocol: Document 01/28/25 12:48 ENM (Rec: 01/28/25 12:49 ENM [id number]) E-signed By Pamela Grant, DPT Physical Therapy Outpatient Evaluation Insurance Information Recert Due Date 04/28/25 Insurance Name Medicare B Medical Diagnosis presence of left artificial hip joint s/p L RONALD 01/19 Treating Diagnosis left hip pain, impaired gait, decreased hip ROM, muscle weakness, decreased knee ROM, Referring MD Mccarty Subjective Preferred Name Rianna Henderson Patient presents to PT 9 days s/p L RONALD (DOS 01/19/25). Was supposed to head home right after surgery but her BP was low so she had to stay overnight. Her blood pressure tends to run lower. Broke out into a rash on her back and stomach after surgery, got medication for this. The first couple of days she was really uncomfortable. Was pretty much immobilized prior to her hip replacement. Transitioned to using a cane just yesterday . Is taking stairs one at a time. Is taking one pain pill every 12 hours. Her goal is to have 100% of her full mobility. Wanting to take walks at the [facility]. Pain Comments 04/12 Current Work Status Retired Objective Other/Pertinent Objective Knee AROM L ext -3 R WNL hip ROM L 85 R 110 strength: fair quad set with glute compensation gait/balance: Patient ambulating with decrease L knee extension, decreased stance time of LLE, hip flexor tightness limiting stride swelling/observation: Patient has an incision over the left anterior hip that is healing well. No significant redness normal healing present Swelling superior patella L 36 R 37 mid patella L 36 R 37 inf patella L 32 R 33 Transfers: using RLE hooked under LLE to get in<>out of bed Assessment Assessment/Impression Patient returns to PT for evaluation 9 days s/p L RONALD DOS 01/19/25. Initially after surgery they were struggling with blood pressure problems, a rash and general discomfort but this has since improved. They are navigating their home environment well with a cane which they transitioned to yesterday. Their goal is to get back to walking and riding their scooter. Upon assessment patient displays decreased hip and knee ROM, impaired gait, impaired transfers and decreased quad strength. Impairments consistent with s/ p RONALD. Rianna would benefit from skilled PT to address impairments stated above in order to perform all functional and recreational activities without significant difficulty or discomfort. Primary Functional Limitations walking, standing, lifting, sleeping Plan of Care Rehabilitation Potential Good Physical Therapy Goals In 6-8 weeks: 1. Patient will be able to lift leg in/out of bed and car without pain or physical assistance for improved transfers 2. Patient will A/D flight of 10 steps reciprocally with symmetric WB for improved navigation of household 3. Patient will resume walk for exercise, gathering groceries and doing errands independently without hip pain . 4. Patient will be able to comfortably lay at night for improved sleep hygiene Coordination/Communication With Referral Source Treatment Plan/Direct Interventions Electrical Stimulation,Gait Training,Ice/Cold/ Vasopneumatic,Joint Mobilization,Manual Therapy, Neuromuscular Re-ed,Self-Care/ Home Management,Therapeutic Activities,Therapeutic Exercises Frequency/Duration 1x a week for 6- 8 weeks Patient Will Be Discharged From Therapy Completion of LTG(s), Independent w/HEP Evaluation Billing Untimed Code Treatment Minutes 23 Complexity Low Certification Information Initial Certification Date 01/28/25 Ending Certification Date 04/28/25 Provider Signature Required Yes Provider Signature Shows Agreement With POC & Medical Necessity Physician NPI Number Write NPI# Here Physician Comment/Change : Physician Signature & Date Requested Please Sign/Date Here
== END 2025-07-07 23:59 | disposition home or self-care (01) ==
PROVIDERS: PCP Family Medicine; Visit Provider Orthopaedic Surgery Sports Medicine
DX: Z47.1 Aftercare following joint replacement surgery (principal); M16.12 Unilateral primary osteoarthritis, left hip; Z96.642 Presence of left artificial hip joint; Z51.89 Encounter for other specified aftercare
CPT/HCPCS: 97110; 97140; 97161